=== PATIENT | female | born 1960 | race Caucasian/White ===

== ENCOUNTER 2019-12-11 23:47 | Emergency (ER) | payer SELFPAY ==
[2019-12-12] MEDS ORDERED: Ondansetron 8 MG Tab.DIS PO ONE (00:42)
--- NOTE | 2019-12-12 00:50 | EDM.PDOC ---
ED HPI GENERAL MEDICAL PROBLEM - General Chief Complaint: Gastrointestinal Problem Stated Complaint: abdominal discomfort, vomiting Time Seen by Provider: 12/12/19 00:35 Source of Information: Reports: Patient - History of Present Illness INITIAL COMMENTS - FREE TEXT/NARRATIVE: developed pain and cramping in the epigastrium since saturday , this got worse and she started vomiting on saturday and also had diarrhea Symtoms have gotten worse still vomiting , no w has hard stools epigastric pain is persistent - Related Data Allergies Allergy/AdvReac Type Severity Reaction Status Date / Time Penicillins Allergy Cannot Verified 12/12/19 00:31 Remember Sulfa (Sulfonamide Allergy Hives Verified 12/12/19 00:31 Antibiotics) Home Meds: Home Meds Ondansetron [Zofran ODT] 4 mg PO Q6H PRN #20 tab.dis 12/12/19 [Rx] metroNIDAZOLE [Flagyl] 500 mg PO Q8H #30 tab 12/12/19 [Rx] ED ROS GENERAL - Review of Systems Review Of Systems: Comprehensive ROS is negative, except as noted in HPI. Constitutional: Reports: Malaise, Weakness, Fatigue, Night Sweats HEENT: Reports: No Symptoms Respiratory: Reports: No Symptoms Cardiovascular: Reports: No Symptoms Endocrine: Reports: No Symptoms GI/Abdominal: Reports: Abdominal Pain, Anorexia, Diarrhea, Decreased Appetite, Distension (in the epigastrium), Nausea Musculoskeletal: Reports: No Symptoms Skin: Reports: No Symptoms Immunologic: Reports: No Symptoms ED EXAM, GI/ABD - Physical Exam Exam: See Below Exam Limited By: No Limitations General Appearance: Alert, WD/WN, Mild Distress Eyes: Bilateral: EOMI Nose: Normal Inspection Head: Atraumatic Neck: Supple, Non-Tender, Full Range of Motion Respiratory/Chest: Lungs Clear, Normal Breath Sounds Cardiovascular: Regular Rate, Rhythm GI/Abdominal Exam: Distended (in the epigastrium), Tender, Abnormal Bowel Sounds. No: Guarding, Rigid, Rebound Back Exam: Decreased Range of Motion Extremities: Normal Range of Motion Neurological: Alert, Oriented, CN II-XII Intact Skin Exam: Intact Course - Vital Signs Last Recorded V/S: Last Vital Signs Temp 36.6 C 12/12/19 03:00 Pulse 87 12/12/19 03:00 Resp 18 12/12/19 03:00 BP 142/76 H 12/12/19 03:00 Pulse Ox 97 12/12/19 03:00 - Orders/Labs/Meds Orders: Active Orders 24 hr Category Date Time Status Abdomen 2V AP Flat Upright [CR] Stat Exams 12/12/19 00:42 Taken Sodium Chloride 0.9% [Normal Saline] 1,000 ml Med 12/12/19 02:15 Active IV ASDIRECTED Medication Orders Sodium Chloride (Normal Saline) 1,000 mls @ 999 mls/hr IV ASDIRECTED LOULOU Last Admin: 12/12/19 02:11 Dose: 999 mls/hr Meds: Medications Generic Name Dose Route Start Last Admin Trade Name Freq PRN Reason Stop Dose Admin Sodium Chloride 1,000 mls @ 999 mls/hr 12/12/19 02:15 12/12/19 02:11 Normal Saline IV 999 mls/hr ASDIRECTED LOULOU Administration Discontinued Medications Generic Name Dose Route Start Last Admin Trade Name Freq PRN Reason Stop Dose Admin Magnesium Hydroxide 30 ml 12/12/19 00:54 12/12/19 01:15 Milk Of Magnesia PO 12/12/19 00:55 30 ml ONETIME ONE Administration Magnesium Hydroxide 30 ml 12/12/19 02:11 12/12/19 02:18 Milk Of Magnesia PO 12/12/19 02:12 30 ml ONETIME ONE Administration Ondansetron HCl 8 mg 12/12/19 00:42 12/12/19 01:15 Zofran Odt PO 12/12/19 00:43 8 mg ONETIME ONE Administration Departure - Departure Time of Disposition: 03:20 Disposition: Home, Self-Care 01 Condition: Fair Clinical Impression: Duodenitis - Discharge Information *PRESCRIPTION DRUG MONITORING PROGRAM REVIEWED*: Not Applicable *COPY OF PRESCRIPTION DRUG MONITORING REPORT IN PATIENT DEBBIE: Not Applicable Instructions: Abdominal Pain, Adult, [facility] Referrals: PCP,None [Primary Care Provider] - Forms: ED Department Discharge Additional Instructions: bland diet BRAT diet increase fluid intake Sepsis Event Note - Evaluation Sepsis Screening Result: No Definite Risk - Focused Exam Vital Signs: Vital Signs Temp Pulse Resp BP Pulse Ox 12/12/19 03:00 36.6 C 87 18 142/76 H 97 12/12/19 00:10 36.7 C 109 H 18 156/99 H 95 Date Exam was Performed: 02/15/20 Time Exam was Performed: 03:15 - My Orders Last 24 Hours: My Active Orders 12/12/19 00:42 Abdomen 2V AP Flat Upright [CR] Stat 12/12/19 02:15 Sodium Chloride 0.9% [Normal Saline] 1,000 ml IV ASDIRECTED - Assessment/Plan Last 24 Hours: My Active Orders 12/12/19 00:42 Abdomen 2V AP Flat Upright [CR] Stat 12/12/19 02:15 Sodium Chloride 0.9% [Normal Saline] 1,000 ml IV ASDIRECTED
[2019-12-12] MEDS ORDERED: Magnesium Hydroxide 400 MG/5 ML Susp 30 ML Cup PO ONE ×2 (00:54→02:11)
[2019-12-12] MEDS ORDERED: Sodium Chloride 0.9% 1,000 ML IV SCH (02:15)
== END 2019-12-12 03:50 | disposition home or self-care (01) ==
LOC: FB.ED 23:47
DX: K29.80 Duodenitis without bleeding (principal); Z88.0 Allergy status to penicillin; Z88.2 Allergy status to sulfonamides
CPT/HCPCS: 74019; 96360; 99283; A9270; J7030

== ENCOUNTER 2020-01-15 15:07 | Emergency (ER) | payer SELFPAY ==
--- NOTE | 2020-01-15 15:41 | EDM.PDOC ---
ED HPI GENERAL MEDICAL PROBLEM - General Chief Complaint: Lower Extremity Injury/Pain Stated Complaint: RIGHT LEG/DULL PAIN Time Seen by Provider: 01/15/20 15:38 Source of Information: Reports: Patient History Limitations: Reports: No Limitations - History of Present Illness INITIAL COMMENTS - FREE TEXT/NARRATIVE: 59-year-old female who reports on 12/22/2019 she developed left upper leg pain and swelling. There was no known injury. The pain initially was a 10/10 and radiated down the top of her leg to her foot. It did seem to be somewhat worse with palpation and movement. He also has had some back pain. She went to the walk-in clinic and she was told that they want unsure why she had the pain but place her on his own. She states she took 2 days of this but stopped it because she was "afraid to take it anymore". She was not having any problems with the medication but just was afraid that she might develop side effects. The pain persisted and on 01/04/2020 she was seen at a walk-in clinic in [place] reports that she had x-rays performed of her hips and also an MRI of her right hip and was told that her throat is in both of these areas but no definite diagnosis was made. Also told that she had an anemia as some blood tests were performed. She presents here today reporting that she has continued pain in her right proximal and lateral. She has noticed no swelling in the lower leg the pain does radiate down to her lower leg and foot. It is a dull pain with some sharp pain associated with it. The pain is now a 5/10. She also reports intermittent nausea but no vomiting. She is having no difficulty breathing and no chest pain. No fevers or chills. No cough or sore throat. No nose or congestion. There are no other associated signs or symptoms. There are no other modifying factors. Onset: Other (12/22/2019) Duration: Constant (But seems to have improved somewhat.) Location: Reports: Lower Extremity, Right Quality: Reports: Dull, Sharp Severity: Moderate Improves with: Reports: None Worsens with: Reports: Other (Palpation), Movement Context: Reports: Other (As above) Associated Symptoms: Reports: No Other Symptoms Treatments [employer]: Reports: Other (see below) (As above. Nothing now.) - Related Data Allergies Allergy/AdvReac Type Severity Reaction Status Date / Time Penicillins Allergy Cannot Verified 12/12/19 00:31 Remember Sulfa (Sulfonamide Allergy Hives Verified 12/12/19 00:31 Antibiotics) Home Meds: Home Meds Aspirin [Lo-Dose Aspirin EC] 81 mg PO DAILY 01/15/20 [History] methylPREDNISolone [Medrol Dose Pack] 4 mg PO DAILY #1 dospk 01/15/20 [Rx] Past Medical History - Past Health History Medical/Surgical History: Denies Medical/Surgical History (No chronic medical problems. Surgical history as detailed below.) - Past Surgical History Female Surgical History: Reports: D&C, Tubal Ligation, Other (See Below) ( Bladder sling surgery) Musculoskeletal Surgical History: Reports: Other (See Below) Other Musculoskeletal Surgeries/Procedures:: Cyst removed from her left wrist and one of her feet. 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 Review of Systems - Review of Systems Review Of Systems: See Below Constitutional: Reports: No Symptoms Eyes: Reports: No Symptoms Ears: Reports: No Symptoms Nose: Reports: No Symptoms Mouth/Throat: Reports: No Symptoms Respiratory: Reports: No Symptoms Cardiovascular: Reports: Palpitations (Off and on for some time.) GI/Abdominal: Reports: Nausea. Denies: Abdominal Pain, Diarrhea, Vomiting Genitourinary: Reports: No Symptoms Musculoskeletal: Reports: Leg Pain (Right leg as above.) Skin: Reports: No Symptoms Neurological: Reports: No Symptoms ED EXAM, GENERAL - Physical Exam Exam: See Below Exam Limited By: No Limitations General Appearance: Alert, WD/WN, Mild Distress Eye Exam: Bilateral Eye: EOMI, Normal Inspection, PERRL Ears: Normal External Exam, Hearing Grossly Normal Ear Exam: Bilateral Ear: Auricle Normal Nose: Normal Inspection, Normal Mucosa, No Blood Throat/Mouth: Normal Inspection, Normal Lips, Normal Oropharynx, Normal Voice, No Airway Compromise Head: Atraumatic, Normocephalic Neck: Normal Inspection, Supple, Non-Tender, Full Range of Motion Respiratory/Chest: No Respiratory Distress, Lungs Clear, Normal Breath Sounds, No Accessory Muscle Use, Chest Non-Tender Cardiovascular: Normal Peripheral Pulses, Regular Rate, Rhythm, No Murmur Peripheral Pulses: 2+: Radial (L), Radial (R), Dorsalis Pedis (R) GI/Abdominal: Normal Bowel Sounds, Soft, Non-Tender, No Mass Back Exam: Normal Inspection, Full Range of Motion Extremities: Normal Inspection, Normal Range of Motion, No Pedal Edema, Normal Capillary Refill, Other (Some tenderness over right anterior bursa area. No swelling noted. No calf tenderness.). No: Richa's Sign Neurological: Alert, Oriented, CN II-XII Intact, Normal Cognition, No Motor/ Sensory Deficits Skin Exam: Warm, Dry, Intact, Normal Color, No Rash Course - Vital Signs Last Recorded V/S: Last Vital Signs Temp 36.5 C 01/15/20 15:22 Pulse 73 01/15/20 15:22 Resp 16 01/15/20 15:22 BP 163/84 H 01/15/20 15:22 Pulse Ox 100 01/15/20 15:22 - Orders/Labs/Meds Orders: Active Orders 24 hr Category Date Time Status VL Duplex Lwr Ext Veins Ltd Rt [US] Stat Exams 01/15/20 15:55 Taken - Radiology Interpretation Free Text/Narrative:: Doppler venous ultrasound of the right lower extremity showed no evidence of DVT. - Re-Assessments/Exams Free Text/Narrative Re-Assessment/Exam: 01/15/20 17:05: The patient remains toxic. A closer look at the area of the pain showed no evidence of skin discoloration and no palpable mass in the area. There was no increased warmth. The Doppler venous ultrasound was per the optometric technician. I discussed the findings this test with the patient and the there are 2 major possibilities as to the etiology of her right lateral thigh and hip pain. I think that this could be trochanteric bursitis. It could also be a herniated disc problem in her lumbar spine with a radiculopathy. I did recommend that we treat her with a Medrol Dosepak as this would help trochanteric bursitis and potentially even help a herniated disc problem. She is willing to give this medication a try. I have also counseled her that her blood pressure was elevated while she was in the emergency department and she should have this followed up. I told her to follow-up with a doctor either through one of the clinics in [place] or through the walk-in clinic here at [facility]. Departure - Departure Time of Disposition: 17:15 Disposition: Home, Self-Care 01 Condition: Good Clinical Impression: Right hip pain, Right thigh pain, Trochanteric bursitis of right hip - Discharge Information Prescriptions: methylPREDNISolone [Medrol Dose Pack] 4 mg PO DAILY #1 dospk Instructions: Bursitis, [id number] Referrals: PCP,None [Primary Care Provider] - Forms: ED Department Discharge Additional Instructions: As we discussed, the ultrasound of your leg showed no evidence of blood clots. You could have a bursitis in your right hip that is causing this pain. This could also be due to a herniated disc in your back. You may take Tylenol and ibuprofen as needed for pain. I have prescribed a Medrol Dosepak (a steroid medication and an anti-inflammatory medication). This would all her sinuses and even symptoms associated with a herniated disc problem. Your blood pressure was elevated while you were in the emergency department as well. You should follow- up with your primary provider or with either of the clinics in [place] ( [facility] or [facility]) or through the walk-in clinic here at [facility] in regard to problems with hip and thigh pain and in regard to your elevated blood pressure. Back to the emergency department for redness in the area, increased warmth in the area, fever, abdominal pain, trouble breathing or any other concerning sign or symptom. Sepsis Event Note - Evaluation Sepsis Screening Result: No Definite Risk - Focused Exam Vital Signs: Vital Signs Temp Pulse Resp BP Pulse Ox 01/15/20 15:22 36.5 C 73 16 163/84 H 100 Date Exam was Performed: 01/15/20 Time Exam was Performed: 17:10 - My Orders Last 24 Hours: My Active Orders 01/15/20 15:55 VL Duplex Lwr Ext Veins Ltd Rt [US] Stat - Assessment/Plan Last 24 Hours: My Active Orders 01/15/20 15:55 VL Duplex Lwr Ext Veins Ltd Rt [US] Stat
--- NOTE | 2020-01-18 10:07 | US ---
INDICATION: Swelling and pain of right lower extremity, question DVT. DUPLEX ULTRASOUND RIGHT LOWER EXTREMITY VEINS: Utilizing 2-D real time, duplex Doppler spectral analysis and color flow imaging, examination of the lower extremity veins, including the common femoral vein, proximal greater saphenous vein, proximal deep femoral vein, proximal femoral vein, mid femoral vein, distal femoral vein, popliteal vein, posterior tibial vein, anterior tibial vein , and peroneal vein, revealed no evidence of deep venous thrombosis or obstruction. Compression views showed no abnormal lack of compression to suggest thrombosis. No evidence of incompetence of the valves was identified. IMPRESSION: Duplex ultrasound, lower extremity veins, shows no evidence of deep venous thrombosis or incompetence. MTDD
== END 2020-01-15 17:26 | disposition home or self-care (01) ==
LOC: FB.ED 15:07
DX: M79.651 Pain in right thigh (principal); M70.61 Trochanteric bursitis, right hip; Z88.0 Allergy status to penicillin; Z88.2 Allergy status to sulfonamides; Z79.82 Long term (current) use of aspirin; Z79.899 Other long term (current) drug therapy
CPT/HCPCS: 93971-RT; 99283-25